=== PATIENT | male | born 1940 | race Caucasian/White ===

== ENCOUNTER 2021-08-30 01:17 | Outpatient (CLI) | payer MEDICARE, BC, SELFPAY ==
[2021-08-30 12:19] LABS: Source Nasal/Nares
[2021-08-30 14:19] LABS: COVID-19 PCR Negative (Negative)
== END 2021-08-30 01:18 | disposition home or self-care (01) ==
LOC: LBO 01:18
PROVIDERS: PCP Family Medicine; Visit Provider Ophthalmology
DX: Z20.822 Contact with and (suspected) exposure to COVID-19 (principal); Z01.818 Encounter for other preprocedural examination
CPT/HCPCS: 87635

== ENCOUNTER 2021-09-01 09:25 | Day surgery (SDC) | payer MEDICARE, BC, SELFPAY ==
[2021-09-01 10:01] VITALS: BP 120/69; PULSE 70; RESP 16; TEMP 37; O2SAT 98
[2021-09-01] MEDS: Tropicam./Phenyleph. (1/2.5%) 5 ML BTL OS ×3 (10:12→10:22)
--- NOTE | 2021-09-01 10:20 | W.ANESPRE ---
General Info Date of Service Date Performed: 09/01/21 Height: 5 ft 8 in Weight: 77 kg Body Mass Index (BMI): 25.8 Surgical Procedure: Operation Date: 09/01/21 12:40 Proposed Procedure Side Surgeon p Cataract Extraction with IOL Implant Left Luis Daniel Gonzalez MD Meds Allergies and Home Medications Allergies Allergy/AdvReac Type Severity Reaction Status Date / Time Sulfa (Sulfonamide Allergy Severe Swelling/Ed Verified 09/01/21 09:55 Antibiotics) christiano amoxicillin Allergy Unknown Verified 09/01/21 09:55 clavulanic acid Allergy Unknown Verified 09/01/21 09:55 Influenza Virus Vaccines Allergy Unknown Verified 09/01/21 09:55 Home Medication Medication Instructions Recorded albuterol sulfate 90 mcg/actuation 2 puff INHALATION Q6H PRN 08/29/21 aerosol inhaler (ProAir HFA) ascorbic acid (vitamin C) 500 mg 500 mg PO BID 08/29/21 capsule,extended release (Vitamin C) aspirin 81 mg tablet,delayed 81 mg PO DAILY 08/29/21 release clorazepate dipotassium 7.5 mg 7.5 mg PO DAILY 08/29/21 tablet fluoxetine 20 mg capsule 20 mg PO DAILY 08/29/21 fluticasone propionate 50 2 spray INTRANASAL DIRECTED 08/29/21 mcg/actuation nasal spray,suspension hydroxychloroquine 200 mg tablet 200 mg PO BID 08/29/21 ipratropium 0.5 mg-albuterol 3 mg 3 ml INHALATION Q12H PRN PRN 08/29/21 (2.5 mg base)/3 mL nebulization soln nitroglycerin 0.4 mg sublingual 0.4 mg SUBLINGUAL Q5-15M PRN 08/29/21 tablet simvastatin 20 mg tablet 20 mg PO DAILY 08/29/21 Current Visit Medications: Current Medications Generic Name Dose Route Start Last Admin Trade Name Freq PRN Reason Stop Dose Admin Acetaminophen 1,000 mg 09/01/21 06:00 Acetaminophen 500 Mg Tab PO Q4H PRN PRN Miscellaneous Medication 0 ml 09/01/21 06:00 Prednisolone 1%, Moxifloxacin 0.5%, Nepafenac 0.1% 5ml Btl OS DIRECTED SIVA Miscellaneous Medication 0 ml 09/01/21 06:00 09/01/21 10:17 Tropicam./Phenyleph. (1/2.5%) 5 Ml Btl OS 1 drp DIRECTED SIVA Administration Tetracaine HCl 0 ml 09/01/21 06:00 Tetracaine 0.5% 4 Ml Btl OS DIRECTED SIVA PFSH Active Problems Active Problems: Problem Status Onset Code Nuclear sclerotic cataract of left eye H25.12 Posterior subcapsular age-related cataract of left eye H25.042 Medical History Medical History Allergic rhinitis Anxiety Chronic pansinusitis Dyspnea Endogenous depression Generalized arthritis GERD (gastroesophageal reflux disease) Hard of hearing High cholesterol Hypertension Lipoprotein deficiency disorder Nicotine dependence Pulmonary emphysema Rheumatoid arthritis Surgical History Surgical History (Updated 09/01/21 @ 09:54 by Guicho Connolly) History of cardiac catheterization 06/14/2005, 07/08/2018 History of laminectomy History of total knee arthroplasty Hx of tonsillectomy S/P lumbar spinal fusion Tobacco Smoking/Tobacco Use Status: Current every day Tobacco Type: cigarettes Alcohol Alcohol Intake: current Alcohol intake frequency: a few times a week Substance Use Substance use: Never Substance use type: does not use Vital Signs and Lab Results Vital Signs Most Recent Vital Signs in EMR: Most Recent Vital Signs Temp Pulse Resp BP Pulse Ox 37.0 C 70 16 120/69 98 09/01/21 10:01 09/01/21 10:01 09/01/21 10:01 09/01/21 10:01 09/01/21 10:01 Lab Results Blood Type / Crossmatch: No Data to Display Complete Blood Count: No Data to Display Complete Metabolic Panel: No Data to Display Liver Function Panel: No Data to Display Coagulation Panel: No Data to Display Cardiac Panel: No Data to Display Arterial Blood Gas: No Data to Display Venous Blood Gas: No Data to Display Pancreas Panel: No Data to Display Thyroid Panel: No Data to Display Infectious Disease: Coronavirus (COVID-19)(PCR) Negative (Negative) 08/30/21 10:48 08/30/21 Coronavirus 2019 Source Nasal/Nares 08/30/21 10:48 08/30/21 Blood Cultures: No Data to Display Toxicology Panel: No Data to Display Anesthesia Assessment and Plan Anesthesia History Personal History: No History of Anesthesia Complications Family History: No Family History of Anesthesia Complications Exercise Tolerance Exercise Tolerance: Metabolic Equivalents>4 Pertinent Negatives Pertinent Negatives: No Symptoms of GERD, No Major Cardiovascular Symptoms or Complaints and No Major Pulmonary Symptoms or Complaints Cardiac & Pulmonary Exam Cardiac Exam: Normal S1/S2 Heart Sounds Pulmonary Exam: Clear Bilateral Breath Sounds Implantable Cardiac Device Does patient have a Pacemaker or an ICD?: No Airway Exam Known Difficult Airway: No Mallampati Class: 2 Mouth Opening: Normal (> 3cm) Thyromental Distance: Greater than 3 cm Neck Range of Motion: Full ROM Neck Circumference: Normal Teeth Condition: Normal Dentition ASA Classification ASA Score: ASA 2 Emergency Case?: No NPO Status NPO Status: NPO Clears >2 hours, Solids >8 hours Anesthesia Plan Resuscitation Status: Full Code Anesthesia Technique: MAC Anesthesia Airway Planned: Natural Airway Monitors Used: Standard Monitors
[2021-09-01 10:45] VITALS: BMI 25.8
[2021-09-01] MEDS: Tetracaine 0.5% 4 ML BTL OS (11:06)
[2021-09-01] MEDS: Balanced Salt Soln.-PLUS 500 ML BAG (11:06)
[2021-09-01] MEDS: Duovisc Viscoelastic System EACH 1 EACH (11:07)
[2021-09-01] MEDS: Lidocaine 2% Jelly 6 ML SYR (11:08)
[2021-09-01] MEDS: Povidone-Iodine Ophth 30 ML BTL (11:09)
[2021-09-01] MEDS: Trypan Blue 0.06% 0.5 ML SYR (11:10)
[2021-09-01 11:33] VITALS: BP 124/68; PULSE 67; RESP 16; TEMP 36.9; O2SAT 95
--- NOTE | 2021-09-01 11:34 | PDOC.DSDIS_ITS ---
Discharge Plan Disposition Patient Disposition: HOME Condition: Good Discharge Details Attending Provider: Luis Daniel Gonzalez Primary Care Provider: Wilner Fofana Home Meds and New Rx's Prescriptions: No Action ipratropium-albuterol 0.5 mg-3 mg(2.5 mg base)/3 mL Solution For Nebulization 3 ml INHALATION Q12H PRN PRN0RF aspirin [Aspir-81] 81 mg Tablet,Delayed Release (Dr/Ec) 81 mg PO DAILY 0RF simvastatin 20 mg Tablet 20 mg PO DAILY 0RF nitroglycerin 0.4 mg Tablet, Sublingual 0.4 mg SUBLINGUAL Q5-15M PRN0RF Rx Instructions: do not exceed 3 doses per episode ascorbic acid (vitamin C) [Vitamin C] 500 mg Capsule, Extended Release 500 mg PO BID 0RF hydroxychloroquine 200 mg Tablet 200 mg PO BID 0RF albuterol sulfate [ProAir HFA] 90 mcg/actuation Hfa Aerosol Inhaler 2 puff INHALATION Q6H PRN0RF fluoxetine 20 mg Capsule 20 mg PO DAILY 0RF fluticasone propionate 50 mcg/actuation [place],Suspension 2 spray INTRANASAL DIRECTED 0RF Rx Instructions: administer into each nostril clorazepate dipotassium 7.5 mg Tablet 7.5 mg PO DAILY 0RF Discharge Instructions Stand Alone Forms: Post-op Topical Cataract, [place] Krishna (DSU) Discharge Orders Discharge Orders: Discharge Order (Routine); Ordered 09/01/21 Ordered By: Luis Daniel Gonzalez DS: Diagnosis Discharge Diagnosis (1) Nuclear sclerotic cataract of left eye: Status: Suspected (2) Posterior subcapsular age-related cataract of left eye: Status: Resolved
--- NOTE | 2021-09-01 11:35 | ROE_ITS ---
Date of service: 09/01/21 Time of Service: 11:35 Operative Note Operative Note DATE OF PROCEDURE: 09/01/21 PRE-OP DIAGNOSIS: Dense nuclear/posterior subcapsular cataract, left eye Poorly dilating pupil, left eye Poor red reflex, left eye secondary to dense cataract POST-OP DIAGNOSIS: same PROCEDURE: Cataract extraction by phacoemulsification with intraocular lens implantation, left eye, with pupillary expansion device SURGEON: Luis Daniel Gonzalez ANESTHESIA TYPE: Local By Surgeon and MAC Refer to Anesthesia Record ESTIMATED BLOOD LOSS: 0 PATHOLOGY: none sent COMPLICATIONS: None Patient was transported to: same day Patient's condition: stable Implants: Daniel and Daniel / [employer] Tecnis [id number] Indications: Progressive decreased vision, left eye Poorly dilating pupil, left eye. Procedure Description: CATARACT SURGERY OPERATIVE REPORT PREOPERATIVE DIAGNOSIS: 1. [] 2. Poorly dilating pupil, left eye POSTOPERATIVE DIAGNOSIS: Same OPERATION: 1. Cataract extraction using phacoemulsification with posterior chamber intraocular lens implant, left eye. 2. Pupillary dilation and iris stabilization using Malyugin Ring IOL; IOL Streetcar Repairer Helper/Model: Daniel & Daniel / XAVI Tecnis [id number] IOL Power: +[] diopters IOL Serial Number: [] Optic Diameter: 6.0 mm Haptic/Overall Diameter: 13.00 mm PHACO INFO: Neal [employer] [place] Vision System with OZil and Active Fluidics Cumulative Dispersed Energy (CDE): [] seconds SURGEON: Luis Daniel Gonzalez MD, NISA ANESTHESIA: Monitored Anesthesia Care (MAC), with local sub-tenon's anesthetic infiltration COMPLICATIONS: None SPECIMENS: None INDICATIONS FOR PROCEDURE: [] PROCEDURE: The correct surgical eye was identified and marked as the left eye and the pupil was dilated in the preoperative area using mydriatics, cycloplegics, and NSAIDS (except in aspirin allergic patients). The dilated pupil size was [] mm. Oral sedation was administered in the form of an Imprimis MKO Melt (midazolam 3mg/ketamine 25mg/ondansetron 2mg). The patient was brought to the operating room where cardiopulmonary monitoring was instituted and surgical time-out was performed, confirming the correct operative eye and IOL power. Topical anesthesia was administered and ophthalmic povidone-iodine 5% was instilled into the conjunctival fornices. Lidocaine gel was applied to the cornea and the bjorn-ocular area was prepped with Betadine 10% solution and dr aped in the usual sterile fashion for intraocular surgery, including an aperture drape. A Tegaderm transparent film dressing was cut in half and used to cover the lashes and lid margins. Care was taken to sequester the lashes and lid margins under the Tegaderm dressing. A lid speculum was placed between the lids of the operative eye and the Giuseppe-Xu operating microscope was maneuvered into position. Francisco scissors were then used to make a conjunctival buttonhole approximately 6mm posterior to the limbus in the inferonasal quadrant. Blunt dissection was carried out to expose bare sclera, and a blunt-tipped sub-tenon?s anesthesia cannula was introduced and passed posteriorly along the globe where non- preserved plain lidocaine was injected into posterior sub-Tenon?s space. A sideport knife was used to make a paracentesis port superiorly/superiortemporally. Intraocular phenylephrine/lidocaine was injected into the anterior chamber. The anterior chamber was then filled with visco elastic. A 2.4mm keratome knife was used to create a half-thickness groove at the limbus and then to construct a three-plane near-clear corneal tunnel extending 2.0mm into clear cornea at the temporal position. A []mm Malyugin Ring was then inserted into the pupillary space and engaged with the Kuglen hook. A flap was raised on the anterior capsule and capsulorhexis forceps were used to complete a continuous curvilinear capsulorhexis of []mm. Balanced salt solution was then used to perform cortical cleaving hydrodissection and nuclear hydrodelineation until the lens could be freely rotated within the capsular bag. The lens nucleus was then disassembled and removed within the capsular bag and iris plane using phacoemulsification. Residual cortical material was removed using the 45-degree angled silicone I/A tip with 0.3mm port. The posterior capsule was carefully polished to remove as much residual lens epithelial cells as safely possible. The capsular bag was then inflated and the anterior chamber deepened with viscoelastic. The lens implant described above was inserted into the capsular bag using the XAVI [place] Injector. A Kuglen hook was used to dial the IOL into position. The Malyugin Ring was removed in the reverse order of its insertion. Residual viscoelastic was then removed first from posterior to the IOL, then from the anterior chamber using the I/A handpiece. The lens implant was noted to center nicely within the capsular bag. The incisions were stromally hydrated, and the anterior chamber was reformed using BSS. Then 0.5cc of moxifloxacin 1.0mg/ml were injected into the capsular bag and anterior chamber. The incisions were checked with a Weck spear and found to be secure. Several drops of ophthalmic povidone-iodine 5% were then applied to the eye followed by two drops of Imprimis combination prednisolone/moxifloxacin/nepafenac solution. The drapes were removed and a clear plastic protective eye shield was placed over the eye. The patient was then returned to Same Day Surgery in stable condition.
--- NOTE | 2021-09-01 11:38 | ROE_ITS ---
Date of service: 09/01/21 Time of Service: 11:38 Operative Note Operative Note DATE OF PROCEDURE: 09/01/21 PRE-OP DIAGNOSIS: Dense nuclear/posterior subcapsular cataract, left eye Poor red reflex, left eye secondary to cataract Poorly dilating pupil, left eye POST-OP DIAGNOSIS: same PROCEDURE: Cataract extraction with intraocular lens implantation, left eye Capsular staining with VisionBlue Pupillary dilation and iris stabilization with pupillary expansion device SURGEON: Luis Daniel Gonzalez ANESTHESIA TYPE: Local By Surgeon and MAC Refer to Anesthesia Record ESTIMATED BLOOD LOSS: 0 PATHOLOGY: none sent COMPLICATIONS: None Patient was transported to: same day Patient's condition: stable Implants: Daniel and Daniel / [employer] Opt[employer] Tecnis [id number] Indications: Progressive decreased vision due to cataract, left eye Procedure Description: CATARACT SURGERY OPERATIVE REPORT PREOPERATIVE DIAGNOSIS: 1. Nuclear/posterior subcapsular cataract, left eye 2. Poorly dilating pupil, left eye 3. Poor red reflex, left eye POSTOPERATIVE DIAGNOSIS: Same OPERATION: 1. Cataract extraction using phacoemulsification with posterior chamber intraocular lens implant, left eye. 2. Pupillary dilation and iris stabilization using Malyugin Ring 3. Capsular staining with VIsion Blue IOL: IOL Grinder Brake Lining/Model: Daniel & Daniel / XAVI Tecnis [id number] IOL Power: + 20.0 diopters IOL Serial Number: [id number] Optic Diameter: 6.0mm Haptic/Overall Diameter: 13.0mm PHACO INFO: Neal [employer] Vision System with OZil and Active Fluidics Cumulative Dispersed Energy (CDE): 12.29 seconds SURGEON: Luis Daniel Gonzalez MD, NISA ANESTHESIA: Monitored Anesthesia Care (MAC), with local sub-tenon's anesthetic infiltration COMPLICATIONS: None SPECIMENS: None INDICATIONS FOR PROCEDURE: The patient is a 80-year-old gentleman with several year history of progressively decreasing vision in the left eye. He is noted to have a dense nuclear/posterior subcapsular cataract in the left eye with a very poorly dilating pupil. The option of cataract surgery was offered to the patient and he wished to proceed. PROCEDURE: The correct surgical eye was identified and marked as the left eye and the pupil was dilated in the preoperative area using mydriatics, cycloplegics, and NSAIDS (except in aspirin allergic patients). The dilated pupil size was 4.0 mm. Oral sedation was administered in the form of an Imprimis MKO Melt (midazolam 3mg/ketamine 25mg/ondansetron 2mg). The patient was brought to the operating room where cardiopulmonary monitoring was instituted and surgical time-out was performed, confirming the correct operative eye and IOL power. Topical anesthesia was administered and ophthalmic povidone-iodine 5% was instilled into the conjunctival fornices. Lidocaine gel was applied to the corn ea and the bjorn-ocular area was prepped with Betadine 10% solution and draped in the usual sterile fashion for intraocular surgery, including an aperture drape. A Tegaderm transparent film dressing was cut in half and used to cover the lashes and lid margins. Care was taken to sequester the lashes and lid margins under the Tegaderm dressing. A lid speculum was placed between the lids of the operative eye and the Giuseppe-Xu operating microscope was maneuvered into position. Francisco scissors were then used to make a conjunctival buttonhole approximately 6mm posterior to the limbus in the inferonasal quadrant. Blunt dissection was carried out to expose bare sclera, and a blunt-tipped sub-tenon?s anesthesia cannula was introduced and passed posteriorly along the globe where non-preserve d plain lidocaine was injected into posterior sub-Tenon?s space. A sideport knife was used to make a paracentesis port superiorly/superiortemporally. Intraocular phenylephrine/lidocaine was injected into the anterior chamber. The anterior chamber was then filled with [place] pro viscoelastic. A 2.4mm keratome knife was used to create a half-thickness groove at the limbus and then to construct a three-plane near-clear corneal tunnel extending 2.0mm into clear cornea temporally. A 7.0 mm Malyugin Ring was then inserted into the pupillary space and engaged with the Kuglen hook. The viscoelastic was then removed using the irrigation/aspiration handpiece. Air was then injected into the anterior chamber followed by VisionBlue, which was painted over the lens capsule and then irrigated out with balanced salt solution. Viscoat was then used to fill the anterior chamber. A flap was raised on the anterior capsule and capsulorhexis forceps were used to complete a continuous curvilinear capsulorhexis of 5.0. The capsule was noted to be quite thin with loose zonules. mm. Balanced salt solution was then used to perform cortical cleaving hydrodissection and nuclear hydrodelineation until the lens could be freely rotated within the capsular bag. The lens nucleus was then disassembled and removed within the capsular bag and iris plane using phacoemulsification. Residual cortical material was removed using the 45-degree angled silicone I/A tip with 0.3mm port. The posterior capsule was carefully polished to remove as much residual lens epithelial cells as safely possible. The capsular bag was then inflated and the anterior chamber deepened with viscoelastic. The lens implant described above was inserted into the capsular bag using the [employer] [place] Injector. A Kuglen hook was used to dial the IOL into position. The Malyugin Ring was removed in the reverse order of its insertion. Residual viscoelastic was then removed first from posterior to the IOL, then from the anterior chamber using the I/A handpiece. The lens implant was noted to center nicely within the capsular bag. The incisions were stromally hydrated, and the anterior chamber was reformed using BSS. Then 0.5cc of moxifloxacin 1.0mg/ml were injected into the capsular bag and anterior chamber. The incisions were checked with a Weck spear and found to be secure. Several drops of ophthalmic povidone-iodine 5% were then applied to the eye followed by two drops of Imprimis combination prednisolone/moxifloxacin/nepafenac solution. The drapes were removed and a clear plastic protective eye shield was placed over the eye. The patient was then returned to Same Day Surgery in stable condition.
--- NOTE | 2021-09-01 11:53 | W.ANESPOSTOP ---
Postoperative Evaluation Date, Time and Location Date Performed: 09/01/21 Time Performed: 11:33 Patient Location: Day Surgery Unit Vital Signs Most Recent Imported Vital Signs: Most Recent Vital Signs Temp Pulse Resp BP Pulse Ox 36.9 C 67 16 124/68 95 09/01/21 11:33 09/01/21 11:33 09/01/21 11:33 09/01/21 11:33 09/01/21 11:33 Pain Score Most Recent Pain Score: Most Recent Pain Score Pain Level 0 09/01/21 11:33 Assessment Mental Status: Awake (Alert & Oriented to Patient Baseline) Airway and Respiratory Function: Patent airway with normal (patient baseline) respiratory exam Cardiovascular Function: Hemodynamically Stable Hydration Status: Adequately Hydrated Nausea & Vomiting: No Nausea or Vomiting Pain: Pt. Denies Any Pain Peripheral Nerve Block: Patient did not receive a nerve block
[2021-09-01 12:05] VITALS: BP 124/69; PULSE 63; RESP 16; TEMP 36.9; O2SAT 97
== END 2021-09-01 12:15 | disposition home or self-care (01) ==
PROVIDERS: PCP Family Medicine; Visit Provider Ophthalmology
PROC: (CPT 66982; principal; 2021-09-01 12:30)
DX: H25.042 Posterior subcapsular polar age-related cataract, left eye (principal); H57.03 Miosis; K21.9 Gastro-esophageal reflux disease without esophagitis; F17.210 Nicotine dependence, cigarettes, uncomplicated; I10 Essential (primary) hypertension; E78.00 Pure hypercholesterolemia, unspecified
CPT/HCPCS: 66982; V2632

== ENCOUNTER 2021-09-13 02:10 | Outpatient (CLI) | payer MEDICARE, BC, SELFPAY ==
[2021-09-13 12:15] LABS: Source Nasal/Nares
[2021-09-13 16:49] LABS: COVID-19 PCR Negative (Negative)
== END 2021-09-13 02:11 | disposition home or self-care (01) ==
LOC: LBO 02:10
PROVIDERS: PCP Family Medicine; Visit Provider Ophthalmology
DX: Z20.822 Contact with and (suspected) exposure to COVID-19 (principal)
CPT/HCPCS: 87635; U0005

== ENCOUNTER 2021-09-15 07:52 | Day surgery (SDC) | payer MEDICARE, BC, SELFPAY ==
[2021-09-15 08:27] VITALS: BP 126/73; PULSE 73; RESP 16; TEMP 36.5; O2SAT 97
[2021-09-15] MEDS: Tropicam./Phenyleph. (1/2.5%) 5 ML BTL OD ×3 (08:36→08:49)
--- NOTE | 2021-09-15 09:32 | W.ANESPRE ---
General Info Date of Service Date Performed: 09/15/21 Height: 5 ft 8 in Weight: 76.6 kg Body Mass Index (BMI): 25.7 Surgical Procedure: Operation Date: 09/15/21 10:40 Proposed Procedure Side Surgeon p Cataract Extraction with IOL Implant Right Luis Daniel Gonzalez MD Meds Allergies and Home Medications Allergies Allergy/AdvReac Type Severity Reaction Status Date / Time Sulfa (Sulfonamide Allergy Severe Swelling/Ed Verified 09/15/21 08:22 Antibiotics) christiano amoxicillin Allergy Unknown Verified 09/15/21 08:22 clavulanic acid Allergy Unknown Verified 09/15/21 08:22 Influenza Virus Vaccines Allergy Unknown Verified 09/15/21 08:22 Home Medication Medication Instructions Recorded albuterol sulfate 90 mcg/actuation 2 puff INHALATION Q6H PRN 08/29/21 aerosol inhaler (ProAir HFA) ascorbic acid (vitamin C) 500 mg 500 mg PO BID 08/29/21 capsule,extended release (Vitamin C) aspirin 81 mg tablet,delayed 81 mg PO DAILY 08/29/21 release clorazepate dipotassium 7.5 mg 7.5 mg PO DAILY 08/29/21 tablet fluoxetine 20 mg capsule 20 mg PO DAILY 08/29/21 fluticasone propionate 50 2 spray INTRANASAL DIRECTED 08/29/21 mcg/actuation nasal spray,suspension hydroxychloroquine 200 mg tablet 200 mg PO BID 08/29/21 ipratropium 0.5 mg-albuterol 3 mg 3 ml INHALATION Q12H PRN PRN 08/29/21 (2.5 mg base)/3 mL nebulization soln nitroglycerin 0.4 mg sublingual 0.4 mg SUBLINGUAL Q5-15M PRN 08/29/21 tablet simvastatin 20 mg tablet 20 mg PO DAILY 08/29/21 Current Visit Medications: Current Medications Generic Name Dose Route Start Last Admin Trade Name Freq PRN Reason Stop Dose Admin Acetaminophen 1,000 mg 09/15/21 06:00 Acetaminophen 500 Mg Tab PO Q4H PRN PRN Miscellaneous Medication 0 ml 09/15/21 06:00 Prednisolone 1%, Moxifloxacin 0.5%, Nepafenac 0.1% 5ml Btl OD DIRECTED SIVA Miscellaneous Medication 0 ml 09/15/21 06:00 09/15/21 08:49 Tropicam./Phenyleph. 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 cataract of left eye H25.042 Medical History Medical History Allergic rhinitis Anxiety Chronic pansinusitis Dyspnea Endogenous depression Generalized arthritis GERD (gastroesophageal reflux disease) Hard of hearing High cholesterol Hypertension Lipoprotein deficiency disorder Nicotine dependence Pulmonary emphysema Rheumatoid arthritis Surgical History Surgical History History of cardiac catheterization 06/14/2005, 07/08/2018 History of laminectomy History of total knee arthroplasty Hx of tonsillectomy S/P lumbar spinal fusion Tobacco Smoking/Tobacco Use Status: Current every day Tobacco Type: cigarettes Alcohol Alcohol Intake: current Alcohol intake frequency: a few times a week Substance Use Substance use: Never Substance use type: does not use Vital Signs and Lab Results Vital Signs Most Recent Vital Signs in EMR: Most Recent Vital Signs Temp Pulse Resp BP Pulse Ox 36.5 C 73 16 126/73 97 09/15/21 08:27 09/15/21 08:27 09/15/21 08:27 09/15/21 08:27 09/15/21 08:27 Lab Results Blood Type / Crossmatch: No Data to Display Complete Blood Count: No Data to Display Complete Metabolic Panel: No Data to Display Liver Function Panel: No Data to Display Coagulation Panel: No Data to Display Cardiac Panel: No Data to Display Arterial Blood Gas: No Data to Display Venous Blood Gas: No Data to Display Pancreas Panel: No Data to Display Thyroid Panel: No Data to Display Infectious Disease: Coronavirus (COVID-19)(PCR) Negative (Negative) 09/13/21 09:30 09/13/21 Coronavirus 2019 Source Nasal/Nares 09/13/21 09:30 09/13/21 Blood Cultures: No Data to Display Toxicology Panel: No Data to Display Anesthesia Assessment and Plan Anesthesia History Personal History: Delayed Emergence Family History: No Family History of Anesthesia Complications Exercise Tolerance Exercise Tolerance: Metabolic Equivalents>4 Cardiac & Pulmonary Exam Cardiac Exam: Normal S1/S2 Heart Sounds Pulmonary Exam: Clear Bilateral Breath Sounds Implantable Cardiac Device Does patient have a Pacemaker or an ICD?: No Airway Exam Known Difficult Airway: No Mallampati Class: 2 Mouth Opening: Normal (> 3cm) Thyromental Distance: Greater than 3 cm Neck Range of Motion: Full ROM Neck Circumference: Normal Teeth Condition: Normal Dentition ASA Classification ASA Score: ASA 2 Emergency Case?: No NPO Status NPO Status: NPO Clears >2 hours, Solids >8 hours Anesthesia Plan Resuscitation Status: Full Code Anesthesia Technique: MAC Anesthesia Airway Planned: Natural Airway Monitors Used: Standard Monitors
[2021-09-15 09:35] VITALS: BMI 25.7
[2021-09-15] MEDS: Tetracaine 0.5% 4 ML BTL OD (09:59)
[2021-09-15] MEDS: Lidocaine 2% Jelly 6 ML SYR (09:59)
[2021-09-15] MEDS: Povidone-Iodine Ophth 30 ML BTL (09:59)
[2021-09-15] MEDS: Duovisc Viscoelastic System EACH 1 EACH (10:01)
[2021-09-15] MEDS: Balanced Salt Soln.-PLUS 500 ML BAG (10:01)
[2021-09-15] MEDS: Trypan Blue 0.06% 0.5 ML SYR (10:11)
[2021-09-15 10:28] VITALS: BP 118/62; PULSE 68; RESP 16; TEMP 36.1; O2SAT 98
--- NOTE | 2021-09-15 10:30 | W.PM.DSUDISC ---
Discharge Plan Disposition Patient Disposition: HOME Condition: Good Discharge Details Attending Provider: Luis Daniel Gonzalez Primary Care Provider: Wilner Fofana Home Meds and New Rx's Prescriptions: No Action ipratropium-albuterol 0.5 mg-3 mg(2.5 mg base)/3 mL Solution For Nebulization 3 ml INHALATION Q12H PRN PRN0RF aspirin [Aspir-81] 81 mg Tablet,Delayed Release (Dr/Ec) 81 mg PO DAILY 0RF simvastatin 20 mg Tablet 20 mg PO DAILY 0RF nitroglycerin 0.4 mg Tablet, Sublingual 0.4 mg SUBLINGUAL Q5-15M PRN0RF Rx Instructions: do not exceed 3 doses per episode ascorbic acid (vitamin C) [Vitamin C] 500 mg Capsule, Extended Release 500 mg PO BID 0RF hydroxychloroquine 200 mg Tablet 200 mg PO BID 0RF albuterol sulfate [ProAir HFA] 90 mcg/actuation Hfa Aerosol Inhaler 2 puff INHALATION Q6H PRN0RF fluoxetine 20 mg Capsule 20 mg PO DAILY 0RF fluticasone propionate 50 mcg/actuation [place],Suspension 2 spray INTRANASAL DIRECTED 0RF Rx Instructions: administer into each nostril clorazepate dipotassium 7.5 mg Tablet 7.5 mg PO DAILY 0RF Discharge Instructions Stand Alone Forms: Post-op Topical Cataract, [place] Krishna (DSU) Discharge Orders Discharge Orders: Discharge Order (Routine); Ordered 09/15/21 Ordered By: Luis Daniel Gonzalez DS: Diagnosis Discharge Diagnosis (1) Nuclear sclerotic cataract of right eye: Status: Resolved (2) Posterior subcapsular age-related cataract, right eye: Status: Resolved
--- NOTE | 2021-09-15 10:32 | ROE_ITS ---
Date of service: 09/15/21 Time of Service: 10:32 Operative Note Operative Note DATE OF PROCEDURE: 09/15/21 PRE-OP DIAGNOSIS: Nuclear/posterior subcapsular cataract, right eye Poorly dilating pupil, right eye Poor red reflex, right eye POST-OP DIAGNOSIS: same PROCEDURE: Cataract extraction using phacoemulsification with intraocular lens implant, right eye, with pupillary dilation using Malyugin Ring and capsular staining using Vision Blue SURGEON: Luis Daniel Gonzalez Refer to Anesthesia Record ESTIMATED BLOOD LOSS: 0 PATHOLOGY: none sent COMPLICATIONS: None Patient was transported to: same day Patient's condition: stable Implants: Daniel and Daniel / [employer] Tecnis [id number] Indications: Progressive decreased vision due to cataract, right eye Procedure Description: CATARACT SURGERY OPERATIVE REPORT PREOPERATIVE DIAGNOSIS: 1. Nuclear/posterior subcapsular cataract, right eye 2. Poorly dilating pupil, right eye 3. Poor red reflex, right eye POSTOPERATIVE DIAGNOSIS: Same OPERATION: 1. Cataract extraction using phacoemulsification with posterior chamber intraocular lens implant, right eye. 2. Pupillary dilation and iris stabilization using Malyugin Ring 3. Capsular staining with VIsion Blue IOL: IOL Machine Tester/Model: Daniel & Daniel / XAVI Tecnis [id number] IOL Power: + 20.50 diopters IOL Serial Number: [id number] Optic Diameter: 6.0mm Haptic/Overall Diameter: 13.0mm PHACO INFO: Neal [employer] Vision System with OZil and Active Fluidics Cumulative Dispersed Energy (CDE): 16.57 seconds SURGEON: Luis Daniel Gonzalez MD, NISA ANESTHESIA: Monitored Anesthesia Care (MAC), with local sub-tenon's anesthetic infiltration COMPLICATIONS: None SPECIMENS: None INDICATIONS FOR PROCEDURE: The patient is a 80-year-old gentleman with history of progressive decreased vision in both eyes secondary to the development of bilateral nuclear/posterior subcapsular cataract. He has already undergone cataract surgery in the left eye and is doing well postoperatively. He now presents for cataract surgery in the right eye. PROCEDURE: The correct surgical eye was identified and marked as the right eye and the pupil was dilated in the preoperative area using mydriatics and cycloplegics. The dilated pupil size was 4.0 mm. Oral sedation was administered in the form of an Imprimis MKO Melt (midazolam 3mg/ketamine 25mg/ondansetron 2mg). The patient was brought to the operating room where cardiopulmonary monitoring was instituted and surgical time-out was performed, confirming the correct operative eye and IOL power. Topical anesthesia was administered and ophthalmic povidone-iodine 5% was ins tilled into the conjunctival fornices. Lidocaine gel was applied to the cornea and the bjorn-ocular area was prepped with Betadine 10% solution and draped in the usual sterile fashion for intraocular surgery, including an aperture drape. A Tegaderm transparent film dressing was cut in half and used to cover the lashes and lid margins. Care was taken to sequester the lashes and lid margins under the Tegaderm dressing. A lid speculum was placed between the lids of the operative eye and the Giuseppe-Xu operating microscope was maneuvered into position. Francisco scissors were then used to make a conjunctival buttonhole approximately 6mm posterior to the limbus in the inferonasal quadrant. Blunt dissection was carried out to expose bare sclera, and a blunt-tipped sub-tenon?s anesthesia can nula was introduced and passed posteriorly along the globe where non-preserved plain lidocaine was injected into posterior sub-Tenon?s space. A sideport knife was used to make a paracentesis port inferiortemporally. Intraocular phenylephrine/lidocaine was injected into the anterior chamber. Air was then injected into anterior chamber, followed by Vision Blue, which was painted over the anterior capsule and then irrigated out with BSS. The anterior chamber was then filled with viscoelastic. A 2.4mm keratome knife was used to create a half-thickness groove at the limbus and then to construct a three-plane near- clear corneal tunnel extending 2.0mm into clear cornea superiortemporally. A 7.0 mm Malyugin Ring was then inserted into the pupillary space and engaged with the Kuglen hook. A flap was raised on the anterior capsule and capsulorhexis forceps were used to complete a continuous curvilinear capsulorhexis of 5.0 mm. Balanced salt solution was then used to perform cortical cleaving hydrodissection and nuclear hydrodelineation until the lens could be freely rotated within the capsular bag. The lens nucleus was then disassembled and removed within the capsular bag and iris plane using phacoemulsification. Residual cortical material was removed using the 45-degree angled silicone I/A tip with 0.3mm port. The posterior capsule was carefully polished to remove as much residual lens epithelial cells as safely possible. The capsular bag was then inflated and the anterior chamber deepened with viscoelastic. The lens implant described above was inserted into the capsular bag using the XAVI [place] Injector. A Kuglen hook was used to dial the IOL into position. The Malyugin Ring was removed in the reverse order of its insertion. Residual viscoelastic was then removed first from posterior to the IOL, then from the anterior chamber using the I/A handpiece. The lens implant was noted to center nicely within the capsular bag. The incisions were stromally hydrated, and the anterior chamber was reformed using BSS. Then 0.5cc of moxifloxacin 1.0mg/ml were injected into the capsular bag and anterior chamber. The incisions were checked with a Weck spear and found to be secure. Several drops of ophthalmic povidone-iodine 5% were then applied to the eye followed by two drops of Imprimis combination prednisoone/moxifloxacin/nepafenac solution. The drapes were removed and a clear plastic protective eye shield was placed over the eye. The patient was then returned to Same Day Surgery in stable condition.
[2021-09-15 10:58] VITALS: BP 112/65; PULSE 66; RESP 16; TEMP 36.2; O2SAT 98
--- NOTE | 2021-09-15 14:29 | W.ANESPOSTOP ---
Postoperative Evaluation Date, Time and Location Date Performed: 09/15/21 Time Performed: 11:00 Patient Location: Day Surgery Unit Vital Signs Most Recent Imported Vital Signs: Most Recent Vital Signs Temp Pulse Resp BP Pulse Ox 36.2 C L 66 16 112/65 98 09/15/21 10:58 09/15/21 10:58 09/15/21 10:58 09/15/21 10:58 09/15/21 10:58 Pain Score Most Recent Pain Score: Most Recent Pain Score Pain Level 0 09/15/21 10:58 Assessment Mental Status: Awake (Alert & Oriented to Patient Baseline) Airway and Respiratory Function: Patent airway with normal (patient baseline) respiratory exam Cardiovascular Function: Hemodynamically Stable Hydration Status: Adequately Hydrated Nausea & Vomiting: No Nausea or Vomiting Pain: Pt. Denies Any Pain Peripheral Nerve Block: Patient did not receive a nerve block
== END 2021-09-15 11:06 | disposition home or self-care (01) ==
PROVIDERS: PCP Family Medicine; Visit Provider Ophthalmology
PROC: (CPT 66982; principal; 2021-09-15 10:30)
DX: H25.041 Posterior subcapsular polar age-related cataract, right eye (principal); H57.03 Miosis; K21.9 Gastro-esophageal reflux disease without esophagitis; J43.9 Emphysema, unspecified; I10 Essential (primary) hypertension
CPT/HCPCS: 66982; V2632